=== PATIENT | female | born 1995 | race Caucasian/White ===

== ENCOUNTER 2025-02-10 20:02 | Emergency (ER) | payer OTHER, SELFPAY ==
[2025-02-10 20:05] VITALS: BP 185/120
[2025-02-10 20:23] VITALS: BMI 44.1
[2025-02-10 20:26] VITALS: BP 151/108
--- NOTE | 2025-02-10 20:40 | ED.GENMED ---
History of Present Illness
General
Chief Complaint: Visual Problem
Source: patient
Exam Limitations: none
Time Seen by Provider: 02/10/25 20:19
History of Present Illness
History of Present Illness:
29-year-old female noted left peripheral visual loss driving home. Noticed it with the cars driving the other direction. Mild vague frontal headache with this. Then when she got home she noted on the right side peripheral vision central was okay
no severe headache no other neurologic symptoms. Symptoms lasted about 45 minutes and totally resolved. Family history of aneurysm
Past History
Past History
ED Past Medical History: Asthma and Psychiatric (Anxiety)
ED Past Surgical History: Orthopedic
Review of Systems
Review of Systems
All Other Systems: Not applicable
Respiratory: Reports no symptoms
Cardiac: Reports no symptoms
ABD/GI: Reports no symptoms
Phy Exam
Physical Exam
Physical Exam:
GENERAL: Alert and oriented in no apparent distress
EYE: Orbits normal.
NECK: Supple, no carotid bruit
ENT: Pharynx without erythema
CARDIAC: Regular rate and rhythm without any obvious murmurs.
LUNGS: Clear breath sounds,normal
ABDOMEN: Soft, without focal tenderness or distention
NEUROLOGICAL: Alert and oriented , cranial nerves II through XII intact. Extraocular muscles intact. Speech normal. [id number] normal. Light touch intact. Eye confrontation normal.
SKIN: Warm and dry, no rash or lesion, no discoloration, skin intact.
MUSCULOSKELETAL: No edema,no deformity.Good color
PSYCH: Normal and appropriate interaction.
Course
Orders/Labs/Results
Orders:
Orders
02/10/25 20:09
EKG [Electrocardiogram (*1)] Urgent
Reason for Study: Hypertension, Benign
EKG- Treatment ONCE
02/10/25 20:27
Vital Signs As Directed
Frequency: Other
Weight As Directed
Frequency: Once
Comment: ZERO STRETCHER SCALE FOR ACCURATE WEIGHT
02/10/25 20:29
Complete Blood Count/With Diff Urgent
Comprehensive Metabolic Panel Urgent
Erythrocyte Sed Rate Urgent
Comment: ADD ON
HCG, Serum Qualitative Screen Urgent
Comment: ADD ON
02/10/25 20:35
Add On- LAB Urgent
Tests Added?: esr
CT Head & Neck Angio W/wo IV Urgent
Comment:
Reason For Exam: Bilateral peripheral visual loss.
IV Insert/Care/Rem.- Treatment PRN
0.9% Sodium Chloride 500 ml [Nss] 500 ml IV BOLUS
02/10/25 21:00
Add On- LAB Urgent
Tests Added?: qual bhcg
Abnormal Lab Results
02/10/25
20:29
Glucose 111 H mg/dl
(70-99)
02/10/25 20:29
02/10/25 20:29
Vital Signs
Initial and Last Documented VS:
Initial Vital Signs
Temp Pulse Resp BP Pulse Ox
98.7 F 85 18 185/120 99
02/10/25 20:05 02/10/25 20:05 02/10/25 20:05 02/10/25 20:05 02/10/25 20:05
Last Documented Vital Signs
Temp Pulse Resp BP Pulse Ox
98.7 F 78 19 135/94 98
02/10/25 20:05 02/10/25 21:00 02/10/25 21:00 02/10/25 21:00 02/10/25 21:00
MDM/Problems Addressed
Differential Diagnosis Includes:
Transient bilateral peripheral visual loss. Resolved. Family history of aneurysm. Workup in progress
*Radiology
Radiology exam reviewed: radiology read reviewed (Negative)
*Pulse Oximetry
Patient hypoxic: no
*EKG
Interpreted by ED Provider?: Yes
Interpretation: abnormal
Comparison EKG: no comparison EKG present
Heart Rate: 77
Rate: normal
Rhythm: sinus
Irma: normal axis
Interval: normal interval
QRS Pattern: normal QRS
Ischemia: non-specific ST changes
*Critical Care Note
Total Time (30-74mins, 75-104mins- exclusive of procedures): Not Applicable
Update Note
Update Note:
Patient has remained asymptomatic here. Transient visual changes that have resolved. No serious etiology found. CT angio negative. EKG has nonspecific changes however patient is not describing any acute cardiac issues and has no murmur. Stable
for outpatient observation and follow-up
ED Attending Note
-
Portions of this chart may have been created with voice recognition software.� Occasional wrong word or��sound alike� substitutions may have occurred due to the inherent limitations of voice recognition software.
Discharge Plan
Departure
Patient Disposition: Home (Routine Discharge)
Date of Disposition: 02/10/25
Time of Disposition: 22:53
Patient with high blood pressure during this ER visit?: Yes
Discharge Problem:
Transient visual changes, Possible ocular migraine
Instructions: Headache, Adult (DC), BLOOD PRESSURE
Prescriptions:
No Action
escitalopram oxalate [Lexapro] 10 mg Tablet
10 mg PO DAILY
Referrals:
Cecille Woodard MD [Family Provider] - Follow up in 2-3 days
Activity Restrictions/Additional Instructions:
Follow-up closely with your primary physician. Return with any recurring episodes or any other unusual neurologic symptoms
Interventions
Interventions:
*Risk Screen - Suicide Last Done: 02/10/25 20:08
*General Assessment Last Done: 02/10/25 20:08
*Neglect/Abuse Screening Last Done: 02/10/25 20:08
*ED COVID-19 Vaccine History Last Done: 02/10/25 20:08
ED- Neurological Assessment Last Done: 02/10/25 20:24
ED-EENT Assessment Last Done: 02/10/25 20:24
ED Swallowing Screen Last Done: 02/10/25 20:24
Discharge Date and Time
Print Language: MALAY
[2025-02-10 20:42] LABS: % Basophils 0.3 % (0-2); % Eosinophils 1.3 % (0-6); % Immature Granulocytes 0.3 % (0-0.5); % Lymphocytes 32.2 % (20.5-51.1); % Monocytes 6.7 % (1.7-9.3); % Neutrophils 59.2 % (42.2-75.2); Absolute Eosinophils 0.1 10^3/uL (0-0.7); Absolute Monocytes 0.6 10^3/uL (0.1-0.6); Absolute Neutrophils 5.5 10^3/uL (1.4-6.5); Hematocrit 39.5 % (37.0-47.0); Hemoglobin 13.2 g/dL (12.0-16.0); Mean Corp Hgb Conc. 33.4 g/dL (33.0-37.0); Mean Corpuscular Hgb 29.1 pg (27.0-31.0); Nucleated Red Blood Cells % 0 %; Platelet Count 296 10^3/uL (130-400); Red Blood Cell Count 4.54 10^6/uL (4.20-5.40); Red Cell Dist. Width 13.5 % (11.5-14.5); White Blood Cell Count 9.3 10^3/uL (4.8-10.8)
[2025-02-10] MEDS: NSS 500 IV (20:50)
[2025-02-10 20:55] LABS: ALT (SGPT) 14 U/L (0-35); AST (SGOT) 26 U/L (14-36); Albumin 4.4 g/dl (3.5-5.0); Alkaline Phosphatase 77 U/L (38-126); Blood Urea Nitrogen 13 mg/dl (7-17); Calcium 9.7 mg/dl (8.4-10.2); Carbon Dioxide 27 mmol/L (22-30); Chloride 105 mmol/L (98-107); Estimated Creatinine Clearance > 125 ml/min; Glucose 111 mg/dl (70-99); Potassium 3.9 mmol/L (3.5-5.1); Sodium 139 mmol/L (135-145); Total Bilirubin 0.4 mg/dl (0.2-1.3); eGFR > 60.00
[2025-02-10 21:00] VITALS: BP 135/94
[2025-02-10 21:00] LABS: Erythrocyte Sed Rate 9 mm/hour (0-20)
[2025-02-10 21:27] LABS: HCG, Serum Qualitative Screen Negative
[2025-02-10 22:56] VITALS: BP 129/75
== END 2025-02-10 23:16 | disposition home or self-care (01) ==
LOC: EMR 20:02
PROVIDERS: EMERGENCY PHYSICIAN Emergency Medicine; FAMILY PHYSICIAN Family Medicine
DX: H53.123 Transient visual loss, bilateral (principal); I10 Essential (primary) hypertension
CPT/HCPCS: 99285; 70496; 70498; 80053; 84703; 85025; 85652; 93005; Q9967